=== PATIENT | female | born 1935 | race African-American/Black ===

== ENCOUNTER 2016-07-20 15:04 | Emergency (ER) | payer MEDICARE, BC ==
[~2016-07-20] VITALS: Ht 157.5 cm; Wt 68.0 kg
[2016-07-20 17:43] VITALS: BP 116/60
== END 2016-07-20 17:45 | disposition home or self-care (01) ==
LOC: ER 16:39
DX: S05.12XA Contusion of eyeball and orbital tissues, left eye, initial encounter (principal); W18.11XA Fall from or off toilet without subsequent striking against object, initial encounter; Y93.89 Activity, other specified; Y99.9 Unspecified external cause status; Y92.89 Other specified places as the place of occurrence of the external cause; J45.909 Unspecified asthma, uncomplicated; I10 Essential (primary) hypertension
CPT/HCPCS: 70450; 70486; 99284